=== PATIENT | female | born 1960 | race Caucasian/White ===

== ENCOUNTER 2023-08-09 16:09 | Emergency (ER) | payer MEDICARE, OTHER ==
[~2023-08-09] VITALS: Ht 157.5 cm; Wt 52.2 kg
[2023-08-09 16:43] VITALS: BP 161/96; PULSE 84; RESP 18; TEMP 98.8
[2023-08-09] MEDS ORDERED: CEPHALEXIN MONOHYDRATE 500 MG CAPSULE PO ONE (17:00)
== END 2023-08-09 18:13 | disposition home or self-care (01) ==
LOC: EMS 16:12
DX: S90.512A Abrasion, left ankle, initial encounter (principal); B85.2 Pediculosis, unspecified; F15.10 Other stimulant abuse, uncomplicated; J45.909 Unspecified asthma, uncomplicated; F17.210 Nicotine dependence, cigarettes, uncomplicated; Z90.710 Acquired absence of both cervix and uterus; X58.XXXA Exposure to other specified factors, initial encounter; Y93.89 Activity, other specified; Y92.89 Other specified places as the place of occurrence of the external cause; Y99.8 Other external cause status
CPT/HCPCS: 99283